=== PATIENT | female | born 1975 | race Hispanic/Latino ===

== ENCOUNTER 2017-05-19 18:31 | Emergency (ER) | payer SELFPAY ==
[2017-05-19 19:20] LABS: BASOPHILS % (AUTO) 0.7 % (0.0-5.0); EOSINOPHILS % (AUTO) 1.7 % (0.0-8.0); HEMATOCRIT 34.9 % (36-48); LYMPHOCYTES % (AUTO) 22.6 % (21.0-51.0); MEAN CORPUSCULAR HEMOGLOBIN 22.8 pg (27.0-33.0); MEAN CORPUSCULAR VOLUME 69.1 fL (79-99); MONOCYTES % (AUTO) 7.6 % (3.0-13.0); NEUTROPHILS % (AUTO) 67.4 % (40.0-77.0); PLATELET COUNT (AUTO) 391 K/uL (130-400); RED BLOOD CELL COUNT(AUTO) 5.05 MIL/uL (4.00-5.50); RED CELL DISTRIBUTION WIDTH 17.6 % (11.0-15.5); WHITE BLOOD COUNT (AUTO) 9.1 K/uL (4.8-10.8)
[2017-05-19 19:23] LABS: APPEARANCE,URINE CLEAR (CLEAR); BILIRUBIN,URINE NEGATIVE (NEGATIVE); COLOR,URINE YELLOW (YELLOW); GLUCOSE, URINE (UA) NEGATIVE (NEGATIVE); KETONES,URINE NEGATIVE (NEGATIVE); LEUKOCYTE ESTERASE ,URINE NEGATIVE (NEGATIVE); NITRATE,URINE NEGATIVE (NEGATIVE); OCCULT BLOOD,URINE SMALL (NEGATIVE); PROTEIN,URINE NEGATIVE (NEGATIVE)
[2017-05-19 19:35] LABS: CREATININE 0.7 mg/dL (0.5-1.5); POTASSIUM 3.6 mmol/L (3.5-5.1)
[2017-05-19 19:35] LABS: HCG,QUAL RESULT NEGATIVE (NEGATIVE)
[2017-05-19 19:39] LABS: ALBUMIN 3.5 g/dL (3.5-5.0); BILIRUBIN,TOTAL 0.4 mg/dL (0.2-1.0); TOTAL PROTEIN, SERUM 8.5 g/dL (6.0-8.3)
[2017-05-19] MEDS ORDERED: LIDOCAINE HCL 2% VISCOUS 15 ML UDCUP ONE (19:41)
[2017-05-19] MEDS ORDERED: MAG HYDROX/AL HYDROX/SIMETH ES 30 ML SUSP UDCUP ONE (19:41)
[2017-05-19 19:51] LABS: BACTERIA,URINE Few /HPF (None Seen); WBC,URINE 0-1 /HPF (0-1)
[2017-05-19 19:54] LABS: MUCUS,URINE Few LPF (None Seen); SQUAMOUS EPITHELIAL CELL,UR Rare /HPF (0-2)
== END 2017-05-19 21:02 | disposition home or self-care (01) ==
LOC: EDH 18:31
DX: K80.70 Calculus of gallbladder and bile duct without cholecystitis without obstruction (principal)
CPT/HCPCS: 36415; 76705; 80053; 81001; 81025; 82150; 83690; 85025